=== PATIENT | male | born 1990 | race Caucasian/White ===

== ENCOUNTER 2020-03-02 12:36 | Emergency (ER) | payer BC ==
[~2020-03-02] VITALS: Ht 180.3 cm; Wt 97.5 kg
[2020-03-02 12:55] LABS: ABSOLUTE EOSINOPHILS 0.4 thou/uL (0.0-0.7); ABSOLUTE LYMPHOCYTES 1.7 thou/uL (0.8-5.3); ABSOLUTE MONOCYTES 0.5 thou/uL (0.0-1.2); ABSOLUTE NEUTROPHILS 4.9 thou/uL (1.6-8.1); BASOPHILS 0.6 %; HEMATOCRIT 40.8 % (42.0-52.0); HEMOGLOBIN 14.3 gm/dL (14.0-18.0); LYMPHOCYTES 22.3 %; MCH 32.7 pg (26.0-34.0); MCHC 35.1 g/dL (28.0-37.0); MCV 93.1 fL (80.0-100.0); MPV 8.1 fl. (7.2-11.1); NUCLEATED RBCS 0 /100WBC; PLATELET COUNT* 186 thou/uL (150-400); POLYS 66.1 %; RBC 4.38 mil/uL (4.50-6.00); RDW-CV 13.2 % (10.5-14.5); WBC 7.5 thou/uL (4.0-11.0)
[2020-03-02 13:05] LABS: CALCIUM 8.3 mg/dL (8.5-10.1); POTASSIUM 3.5 mmol/L (3.5-5.1)
[2020-03-02 13:08] LABS: PROTIME 10.5 Seconds (9.20-11.50)
[2020-03-02 14:12] LABS: ALBUMIN 3.9 g/dL (3.4-5.0); CK-MB MASS 2.1 ng/mL (<0.5-3.6); MAGNESIUM 1.9 mg/dL (1.8-2.4); TOTAL BILIRUBIN 0.4 mg/dL (<0.1-1.0); TOTAL PROTEIN 7.2 g/dL (6.4-8.2)
[2020-03-02 14:38] VITALS: BP 102/69
--- NOTE | 2020-03-03 13:27 | EKG ---
[place] [address] ELECTROCARDIOGRAM REPORT Name: ARPITLI Room: [facility]#: [id number] Admission: 03/02/20 Attend Phys: Discharge: 03/02/20 Date of : 88 Date of Service: 03/02/20 1243 Report #: [id number] THIS REPORT FOR: //name// [facility] ED Test Date: 2020-03-02 Test Time: 12:43:44 Pat Name: LI MUNSON Department: Room: Gender: [employer] Operator: [place] : 1990 Requested By: Kirk Barber Order Number: [id number] MD: Rober Recio Measurements Intervals [place] Rate: 65 P: 17 [place]: 175 QRS: 10 QRSD: 101 T: 13 QT: 405 QTc: 422 Interpretive Statements Sinus rhythm No previous ECG available for comparison Electronically Signed On 03-03-2020 13:25:51 CDT by Rober Recio [email or web address] <ELECTRONICALLY SIGNED> By: Rober Recio MD, [facility] 03/03/20 1325 1243 42 Rober Recio MD, FACC /EPI
== END 2020-03-02 14:40 | disposition home or self-care (01) ==
LOC: M.ERS 12:36 → EDBD 12:36 → M.ERS 14:40
PROVIDERS: Family Medicine
DX: R07.89 Other chest pain (principal); F17.210 Nicotine dependence, cigarettes, uncomplicated